=== PATIENT | female | born 1950 | race Caucasian/White ===

== ENCOUNTER 2017-09-18 10:57 | Inpatient (IN) ==
--- NOTE | 2017-09-18 11:29 | Emergency Department Note ---
Disposition Clinical Impression: Hypoxia Acute respiratory failure Qualifiers: Respiratory failure complication: hypoxia Qualified Code(s): J96.01 - Acute respiratory failure with hypoxia Disposition: Admitted As Inpatient Condition: Good Referrals: NONE,PCP [Primary Care Provider] - Elisabet Escobar [Family Provider] - Forms: ED Satisfaction Letter Time of Disposition: 17:02 Extremity Problem HPI - General Chief complaint: ED Extremity Problem,Nontraumatic Stated complaint: left leg pain Time Seen by Provider: 09/18/17 11:04 Source: EMS Limitations: no limitations Nursing Notes Reviewed: Yes Vital Signs Reviewed: Yes - History of Present Illness HPI Narrative: Mrs. Dean, 66-year-old female, presents from outside facility via EMS for further evaluation. Sending physician is concern for DVT and PE. Patient presented to their facility 11 PM last night for left knee pain. While there, she was febrile, tachycardic, hypoxic. Their workup was not concerning for infectious ideology. Her d-dimer is elevated this concern for continued workup for PE which is beyond the capabilities. PMH: Gout on indomethacin, chronic kidney disease, diabetes, hypertension, hyperlipidemia ROS: Positive: As above Negative: Fever, chills, nausea, vomiting, cough, chest pains, palpitations, unusual weakness, vertigo Pain Scale: 1 - Related Data Home Medications Medication Instructions Recorded Confirmed Albuterol Sulfate [Albuterol 2 puff IH Q4H PRN 09/18/17 09/18/17 Inhaler] Olmesartan Medoxomil [Benicar] 40 mg PO DAILY 09/18/17 09/18/17 Valproic Acid [Valproic Acid] 250 mg PO TID 09/18/17 09/18/17 diazePAM [Valium] 5 mg PO TID 09/18/17 09/18/17 Allergies Allergy/AdvReac Type Severity Reaction Status Date / Time codeine Allergy Vomiting Verified 09/18/17 11:11 All systems ED: reviewed and negative except as stated. Review of Systems: As Per HPI Past Medical History - Past Medical History Medical history: Reports: asthma, hypertension, seizures Psychiatric history: Reports: anxiety - Social History Smoking Status: Never smoker Smokeless Tobacco Status: No Alcohol use: Reports: none Drug use: Reports: none Physical Exam Vital Signs Reviewed General: Patient is alert, oriented, and in no acute distress. HEENT: No facial asymmetry. Head is normocephalic and atraumatic. PERRLA, EOMI. oral mucosa moist. Trachea midline. Cardiovascular: Heart regular rate and rhythm without clicks, rubs, gallops, or murmurs. No JVD. PMI nondisplaced. Respiratory: Symmetric chest rise with good respiratory effort. Bilateral breath sounds are clear without wheezing, crackles, or rhonchi. Abdomen: Bowel sounds present normoactive x-4 quadrants. Abdomen is soft, nondistended, and nontender. Musculoskeletal: Spontaneously moving all extremities. Neuro: She has 15. Alert and oriented 4. Skin: Warm, dry, intact. Psych: Patient's affect is appropriate for situation. - General Limitations: no limitations General appearance: alert, in no apparent distress Course Course Narrative: Records from [facility] reviewed: She presented to their facility for left knee pain radiating proximally up her thigh. She was febrile to 101.1 on arrival with heart rate tachycardic in the low 100s. Left knee x-ray showed arthritic changes with joint effusion. Chest x-ray read as no infiltrate. Patient's tachycardia was resistant to IV fluids. Patient was desaturating into the high 80s on room air GERD with nebulizers. Creatinine 1.48. No elevation in troponin. Influenza swab negative. D-dimer elevated at 358. There was concern for DVT and possible PE. Function precluded him from performing a CTA chest. Given a single shot of Lovenox prior to transfer as well as empiric antibiotics for bronchitis (unknown specific antibiotic) Patient's history is concerning given her hypoxia. She has no history of cancer , no recent surgeries or traumas, no history of coagulopathy, no recent travels. EKG unremarkable. Troponin is normal. BNP is normal. Preliminary read on bilateral lower extremity venous Doppler is negative for DVT. VQ scan shows low probability of PE. Outside hospital performed chest x-ray did not show pneumonia or vascular congestion. BNP here was normal. Patient had no crackles on auscultation. As such, pneumonia and congestive heart failure unlikely. Outside hospital troponin was within normal limits. EKG at this facility unremarkable. Patient had no chest pain. ACS and etiology unlikely. Patient had mild elevation in d-dimer, she is negative for DVT with low probability PE. Patient remains hypoxic on room air. Suspect a viral exacerbation of COPD. Discussed the above with the patient. She is in agreement to admission for pulmonary support. She has already received solumedrol. I discussed the patient with the admitting hospitalist, Dr. Coto, who agrees to accept the patient for continued evaluation and management. Pulmonary Perfusion Imaging 09/18/17 12:50 IMPRESSION: Matching defects are noted in the left lung, possibly due to chest wall attenuation. Low probability for pulmonary embolus. D/ / Alfredo Christy MD / Alfredo Christy MD Interpreting Provider: Alfredo Christy MD Chest X-Ray 09/18/17 13:39 IMPRESSION: 1. No active pulmonary disease. D/ / Bridger Amaya MD / Bridger Amaya MD Interpreting Provider: Bridger Amaya MD Vital Signs Temperature 98.6 F 09/18/17 10:59 Pulse Rate 103 09/18/17 10:59 Respiratory Rate 18 09/18/17 10:59 Blood Pressure 136/81 09/18/17 10:59 O2 Sat by Pulse Oximetry 94 09/18/17 10:59 Temperature 98.6 F 09/18/17 10:59 Pulse Rate 98 09/18/17 14:58 Respiratory Rate 18 09/18/17 14:58 Blood Pressure 128/77 09/18/17 14:58 O2 Sat by Pulse Oximetry 94 09/18/17 14:58 Oxygen Delivery Oxygen Delivery Nasal Cannula Extremity Problem, Nontraumati - Lab Data Lab Results 09/18/17 09/18/17 Range/Units 12:25 12:25 Troponin I 0.01 (0-0.03) ng/mL B-Natriuretic Peptide 39 (0-100) pg/mL - EKG Data EKG attestation: Yes I reviewed and interpreted this EKG. EKG results narrative: EKG dated 18 September 2017 at 12:29 interpreted as sinus rhythm with a rate of 94. Normal intervals. 143, QRS 90, QT/QTC 349/41. Normal axis. T-wave flattening in V1 present. EKG. Compared to previous EKG dated 11/09/2012 shows no acute ischemic changes or comparison. Attestation Statement - Attestation Attestation: I, Adelso Espino DO, examined this patient [id number] and my medical decision-making was reviewed with Dr. Micheal Sarkar, Resident Physician. I agree with the documented findings, disposition and treatment plan as described except to the extent set forth below. Please see my progress notes for details. 66-year-old female sent from outside facility for evaluation of shortness of breath left lower extremities swelling and new-onset hypoxia. Patient was evaluated at outside urgent care/understanding emergency room and recommended to be admitted. He denies inability to admit to the hospital that time and recommended she be seen at some facility. There are to become that facility. On presentation patient had oxygen in place. She became hypoxic with oxygen was taken off. Her kidney function was reviewed and is elevated with a GFR of 31. Patient also had stable laboratory workup including a negative troponin and EKG on chest x-ray established and evaluated at outside facility. D-dimer was less than 400. Patient's symptoms and presentation are concerning for possible pulmonary emboli. DVT study is negative for left lower extremity. VQ scan ordered at this time with repeat chest x-ray, troponin and BNP and EKG that were all unremarkable. Patient will most likely then need admission for definitive management of what appears to be a hypoxic event of unknown etiology. As patient is resting comfortably in the bed in no significant distress denying any chest pain fevers chills nausea vomiting or diarrhea. Denies any recent illnesses medication changes trauma or injury. No other concerns or issues noted during this initial treatment course evaluation. See detailed documentation of the physical exam, medical intervention, medical decision-making and disposition and the resident physician's note Patient has what appears to be clinical suspicion VQ scan. She will be admitted for the hypoxia. Symptoms are most likely an exacerbation of upper airway disease secondary to viral illness. She will be admitted for definitive management.
[2017-09-18] MEDS: Albuterol 2.5 MG/3 ML NEBULIZER IH PRN (22:54)
[2017-09-19] MEDS ORDERED: *HR* OxyCODONE Immed Rel 5 MG TABLET PO PRN (05:10)
[2017-09-19] MEDS ORDERED: Naloxone 0.4 MG/ML INJ IVP PRN (05:10)
--- NOTE | 2017-09-19 05:34 | Internal Med History&Physical ---
Date of Encounter: 09/19/17 Time of Encounter: 04:20 Assessment and Plan (1) Acute asthma exacerbation Current visit: Yes Status: Acute 1. Will start patient on Solu-Medrol, Albuterol aerosols, and oxygen. 2. Wean oxygen as able. 3. Resume home meds as appropriate. 4. V/Q and BLE Dopplers negative for PE/DVT respectively. Qualifiers: Asthma severity: moderate Asthma persistence: persistent Qualified Code(s ): J45.41 - Moderate persistent asthma with (acute) exacerbation (2) Pneumonia Current visit: Yes Status: Suspected 1. Despite negative CXR at [facility], history and exam suggestive of pneumonia. 2. Will order blood cultures and sputum cultures. 3. Will start IV Rocephin and Zithromax. 4. Oxygen as needed for support. Qualifiers: Pneumonia type: due to unspecified organism Laterality: right Lung location: lower lobe of lung Qualified Code(s): J18.1 - Lobar pneumonia, unspecified organism (3) Effusion, left knee Current visit: Yes Status: Acute 1. Likely due to arthritis, doubt infectious. 2. Consult Orthopedics for evaluation and arthrocentesis, if necessary. (4) DVT prophylaxis Current visit: Yes Status: Acute 1. Heparin SQ. Internal Medicine - H&P: HPI Chief complaint: fever; SOB; left knee pain Admitted From: Emergency Dept Plans for Post Hospital Care: Home History of present illness: Ms. Dean is a 66 year old female who was transferred to our ER tonight from [facility]. She presented there with complaints of wheezing, cough, shortness of breath, fever, and excruciating left knee pain. She had workup performed at [facility] in [place] and attempts were made to admit patient to [facility]. Unfortunately, both [facility] and [place] were full with no beds available. Patient was then arranged to be transferred to [facility] in [place]. However, patient and her darryl changed their minds and requested transfer to [place]. She was therefore transferred to our ER. In the ER, she underwent VQ scan and lower extremity Dopplers which were low probability and negative, respectively. Upon my assessment of the patient, she feels a little better. She is drenched in sweat as it appears she just broke a fever. She denies any pleurisy or chest pain. She has complained of coughing, wheezing, and shortness of breath the last several days. Regarding her knee pain, she has been dealing with arthritis in her knee for quite some time. She has a history of gout, but this does not feel as a gouty flareup to her. I reviewed her records from [facility] and note that she had a joint effusion on her x-ray of her knee. Chest x-ray was read as negative as well. Past Med Surg Social Fam HX - Past Medical History Attestation: Yes The following information was validated with the patient. Source: patient, old records reviewed, obtained from family Medical history: asthma, hypertension, seizures Psychiatric history: anxiety - Past Surgical History Surgical History: hysterectomy - Social History Smoking Status: Never smoker Smokeless Tobacco Status: No Alcohol use: none Drug use: none Current living situation: Home, With Family Activity Level: Independent ambulation Recent Out of Country Travel Within the Last 8 Weeks: No - Family History Mother History Unknown: Yes - Additional Family History Additional family history: no FH asthma Internal Medicine - H&P: Meds Albuterol Sulfate [Albuterol Inhaler] 2 puff IH Q4H PRN 09/18/17 [History] Olmesartan Medoxomil [Benicar] 40 mg PO DAILY 09/18/17 [History] Valproic Acid [Valproic Acid] 250 mg PO TID 09/18/17 [History] diazePAM [Valium] 5 mg PO TID 09/18/17 [History] 3 Allergy/AdvReac Type Severity Reaction Status Date / Time codeine Allergy Vomiting Verified 09/18/17 11:11 - Constitutional Constitutional: chills, fever(s), no night sweats - EENT Eyes: no blurry vision, no change in vision Ears: no ear pain, no tinnitus Nose, mouth and throat: no nasal congestion, no sinus pressure, no sore throat - Cardiovascular Cardiovascular ROS IM: no chest pain, no palpitations, no paroxysmal nocturnal dyspnea, no syncope - Respiratory Respiratory: cough, dyspnea, wheezing, chest congestion, no hemoptysis, no excessive phlegm production, no change in phlegm color - Gastrointestinal Gastrointestinal: no abdominal pain, no diarrhea, no hematemesis, no hematochezia, no melena, no nausea, no vomiting - Genitourinary Genitourinary: no dysuria, no flank pain, no hematuria - Musculoskeletal Musculoskeletal ROS IM: arthralgias (left knee), joint swelling (left knee), no back pain - Integumentary Integumentary IM: no rash, no jaundice - Neurological Neurological ROS: no disequilibrium, no dizziness, no focal weakness, no frequent falls, no headache(s) - Psychiatric Psychiatric: no anxiety, no depression - Endocrine Endocrine IM: no polydipsia, no polyuria - Hematologic/Lymphatic Hematologic/Lymphatic: no easy bruising - Allergic/Immunologic Allergic/Immunologic: wheezing, no GI upset with certain foods - Constitutional Vitals: Temp Pulse Resp BP Pulse Ox 97.3 F L 82 14 111/68 94 09/19/17 04:10 09/19/17 04:10 09/19/17 04:10 09/19/17 04:10 09/19/17 04:10 General appearance: Present: mild distress, A&O X 3, morbidly obese, answers questions appropriately Exam: drenched in sweat - Head Head exam: Present: atraumatic, normal inspection - Eye Eye exam: Present: EOMI, PERRL. Absent: scleral icterus Pupils: Present: normal accommodation - ENT ENT exam: Present: mucous membranes dry, normal exam - Neck Neck exam general surgery: Present: full ROM, supple. Absent: tenderness, nuchal rigidity - Expanded Neck Exam Neck exam: Absent: carotid bruit - Respiratory Respiratory exam: Present: prolonged expiratory phase, rales (faint right basilar crackles), respiratory distress (mild), rhonchi, wheezes. Absent: accessory muscle use, chest wall tenderness - Cardiovascular Cardiovascular exam: Present: RRR, +S1, +S2. Absent: diastolic murmur, systolic murmur - GI/Abdominal GI/Abdominal exam: Present: normal bowel sounds, soft. Absent: hepatomegaly, mass, splenomegaly, tenderness - Extremities Exam Extremities exam: Present: joint swelling (left knee with pain, swelling, limited ROM; no redness or warmth, however), warm, radial pulses palpable and symmetrical. Absent: calf tenderness - Back Exam Back exam: Absent: CVA tenderness (L), CVA tenderness (R) - Neurological Exam Neurological exam: Present: alert, CN II-XII intact, oriented X3, no focal deficits - Psychiatric Psychiatric exam: Present: normal affect, normal mood - Skin Skin exam: Present: dry, warm. Absent: rash Internal Med - H&P Results - EKG Data -: EKG Interpreted by Myself EKG shows normal: sinus rhythm - EKG Data Prior EKG available for review: no EKG comments: 09/19/17 05:42 Sinus rhythm with no acute changes
[2017-09-19] MEDS: Azithromycin 500 MG in D5% in Water 250 ML IVPB SCH (05:46)
[2017-09-19] MEDS: *HR* Heparin 5,000 UNIT/ML VIAL SQ SCH ×3 (05:47→21:27)
[2017-09-19] MEDS ORDERED: cefTRIAXone 1,000 MG in Water for inj. (sterile) 10 ML IVP SCH (06:00)
[2017-09-19 06:04] LABS: Prothrombin Time 10.6 Seconds (9.4-12.1)
[2017-09-19 06:08] LABS: Basophils % 0.3 %; Hemoglobin 9.2 g/dL (11.5-15.4); Immature Granulocytes % 1.5 % (0-4); Lymphocytes # 2.3 K/mcL (0.6-4.6); Lymphocytes % 20.9 %; Mean Corpuscular HGB Conc 31.7 g/dL (31.6-35.5); Mean Corpuscular Hemoglobin 29.9 pg (28.0-33.3); Mean Corpuscular Volume 94.2 fL (83.0-100.0); Mean Platelet Volume 10.1 fL (9.4-12.4); Monocytes # 1.1 K/mcL (0.0-1.3); Monocytes % 9.5 %; Neutrophils # 7.5 K/mcL (1.6-8.9); Platelet Count 204 K/mcL (140-400); Red Blood Count 3.08 M/mcL (3.82-4.97); Red Cell Distribution Width 13.5 % (11.5-14.5); Segmented Neutrophils % 67.8 %
[2017-09-19 06:16] LABS: Albumin 2.7 g/dL (3.5-5.0); Albumin/Globulin Ratio 0.7 (1.1-2.2); Bilirubin,Total 0.2 mg/dL (0.2-1.2); Calcium 8.4 mg/dL (8.6-10.8); Globulin 3.9 g/dL (2.4-3.5); Magnesium 1.8 mg/dL (1.6-2.6); Potassium 4.7 mEq/L (3.5-4.5); Total Protein 6.6 g/dL (6.0-8.3)
[2017-09-19 06:44] LABS: Activated Partial Thrombo Time 28.4 Seconds (26.0-36.0)
[2017-09-19] MEDS ORDERED: methylPREDNISolone 125 MG/2 ML VIAL IVP SCH (08:00)
[2017-09-19] MEDS: Valproic Acid 250 MG CAPSULE PO SCH ×3 (09:23→21:26)
[2017-09-19] MEDS: Acetaminophen 325 MG TABLET PO PRN ×2 (09:40→21:26)
--- NOTE | 2017-09-19 13:40 | Internal Med Progress Note ---
<Rony Gonsalez - Last Filed: 09/19/17 13:52> Date of Encounter: 09/19/17 Time of Encounter: 09:00 - Assessment and plan (1) Acute respiratory failure Current Visit: Yes Status: Acute Assessment and plan: Patient presented with shortness of breath. Low oxygen saturation, initial concern for PE. VQ scan demonstrated low probability of PE. Patient was asymptomatic this morning; oxygen saturation has improved to 98%. Plan: -Solu-Medrol 60 mg IV Q8 -DuoNeb's 2.5 mg Q4 -Continuous cardiac monitoring. -Patient will be discharged pending the approval of orthopedics. Qualifiers: Respiratory failure complication: hypoxia Qualified Code(s): J96.01 - Acute respiratory failure with hypoxia (2) Pneumonia Current Visit: Yes Status: Suspected Assessment and plan: In [facility]'s ER, patient had a negative chest x-ray. History and physical examination however, were suggestive of pneumonia upon presentation. Blood culture was ordered. Patient was started on azithromycin 500 mg IV Q24 and ceftriaxone 1000 IV Q24 on 09/19/17; day 1 of antibiotics. Qualifiers: Pneumonia type: due to unspecified organism Laterality: right Lung location: lower lobe of lung Qualified Code(s): J18.1 - Lobar pneumonia, unspecified organism (3) Effusion, left knee Current Visit: Yes Status: Acute Assessment and plan: Patient has swelling in her left knee. -Possibly due to arthritis. -No redness or tenderness suggestive of infection. -Orthopedics has been consult for evaluation and possible arthrocentesis. (4) DVT prophylaxis Current Visit: Yes Status: Acute - Subjective Interval history: Patient was seen and examined at bedside this morning. Patient states that she is feeling much better than she did on initial presentation. She denies having any shortness of breath, cough, excessive sputum production, fever, chills, or chest pain. Patient only complains of pain right knee she has had for quite some time. Patient is resting comfortably in bed and has no complaints at this time. - Constitutional Vitals: Temp Pulse Resp BP Pulse Ox 97.6 F 81 15 110/70 98 09/19/17 07:28 09/19/17 07:28 09/19/17 07:28 09/19/17 07:28 09/19/17 07:28 General appearance: Present: mild distress, A&O X 3, morbidly obese, answers questions appropriately - Head Head exam: Present: atraumatic, normocephalic - Eye Eye exam: Present: PERRL, conjuntiva pink, sclera anicteric Pupils: Present: PERRL - Neck Neck exam general surgery: Present: supple, trachea midline. Absent: lymphadenopathy - Respiratory Respiratory exam: Present: CTAB. Absent: accessory muscle use, rales, rhonchi, wheezes - Cardiovascular Cardiovascular exam: Present: RRR, +S1, +S2. Absent: diastolic murmur, gallop, rubs, systolic murmur - Skin Skin exam: Present: dry, intact Internal Medicine: Result - Labs CBC & Chem 7: 09/19/17 05:46 09/19/17 05:46 Labs: Short CBC 09/19/17 Range/Units 05:46 WBC 11.0 (4.3-11.1) K/mcL Hgb 9.2 L (11.5-15.4) g/dL Hct 29.0 L (35.3-44.9) % Plt Count 204 (140-400) K/mcL Neutrophils # 7.5 (1.6-8.9) K/mcL BMP 09/19/17 05:46 Sodium 139 Potassium 4.7 H Chloride 105 Carbon Dioxide 24 BUN 31 H Creatinine 1.11 Glucose 128 H Calcium 8.4 L Liver Function 09/19/17 Range/Units 05:46 Total Bilirubin 0.2 (0.2-1.2) mg/dL AST 11 (5-34) Units/L ALT 12 (0-55) Units/L Alkaline Phosphatase 72 (38-126) Units/L Albumin 2.7 L (3.5-5.0) g/dL - ABG Interpretation ABG results: PT/INR, D-dimer PT 10.6 Seconds (9.4-12.1) 09/19/17 05:46 Consult Discharge Plan - Plan Referrals: NONE,PCP [Primary Care Provider] - Elisabet Escobar [Family Provider] - <Al Lin - Last Filed: 09/19/17 19:27> Date of Encounter: 09/19/17 - Constitutional Vitals: Temp Pulse Resp BP Pulse Ox 97.2 F L 92 15 119/73 90 09/19/17 16:36 09/19/17 16:36 09/19/17 16:36 09/19/17 16:36 09/19/17 16:36 Internal Medicine: Result - Labs CBC & Chem 7: 09/19/17 05:46 09/19/17 05:46 Labs: Short CBC 09/19/17 Range/Units 05:46 WBC 11.0 (4.3-11.1) K/mcL Hgb 9.2 L (11.5-15.4) g/dL Hct 29.0 L (35.3-44.9) % Plt Count 204 (140-400) K/mcL Neutrophils # 7.5 (1.6-8.9) K/mcL BMP 09/19/17 05:46 Sodium 139 Potassium 4.7 H Chloride 105 Carbon Dioxide 24 BUN 31 H Creatinine 1.11 Glucose 128 H Calcium 8.4 L Liver Function 09/19/17 Range/Units 05:46 Total Bilirubin 0.2 (0.2-1.2) mg/dL AST 11 (5-34) Units/L ALT 12 (0-55) Units/L Alkaline Phosphatase 72 (38-126) Units/L Albumin 2.7 L (3.5-5.0) g/dL - ABG Interpretation ABG results: PT/INR, D-dimer PT 10.6 Seconds (9.4-12.1) 09/19/17 05:46 - Attending Attestation I conducted a face to face diagnostic evaluation of this patient and my medical decision-making was reviewed with the Resident Physician, Dr. Rony Gonsalez. I agree with the documented findings, disposition and treatment plan as described except to the extent set forth below: On my evaluation patient appears short of breath, speaking in short sentences, tachypneic. Her oxygen saturation drops to 89% on room air with just walking a few steps to the bathroom. Heart rate went up to 109. She reports moderate shortness of breath. : Continue with IV steroids. Continue with azithromycin. Check respiratory infection panel.
[2017-09-19] MEDS: Albuterol 2.5 MG/3 ML NEBULIZER IH PRN (14:18)
[2017-09-19 17:43] LABS: Adenovirus Not Detected (Not Detect); Coronavirus 229E Not Detected (Not Detect); Coronavirus HKU1 Not Detected (Not Detect); Coronavirus NL63 Not Detected (Not Detect); Coronavirus OC43 Not Detected (Not Detect); Human Metapneumovirus Not Detected (Not Detect); Human Rhinovirus/Enterovirus Not Detected (Not Detect)
[2017-09-19 17:44] LABS: Bordetella Pertussis Not Detected (Not Detect); Chlamydophila pneumoniae Not Detected (Not Detect); Influenza A Subtype 2009 H1 Not Detected (Not Detect); Influenza A Untypeable Not Detected (Not Detect); Influenza B Not Detected (Not Detect); Mycoplasma pneumoniae Not Detected (Not Detect); Parainfluenza Virus 1 Not Detected (Not Detect); Parainfluenza Virus 2 Not Detected (Not Detect); Parainfluenza Virus 3 Not Detected (Not Detect); Parainfluenza Virus 4 Not Detected (Not Detect); Respiratory Syncytial Virus Not Detected (Not Detect)
[2017-09-19] MEDS: methylPREDNISolone 125 MG/2 ML VIAL IVP SCH (18:00)
[2017-09-19] MEDS: diazePAM 5 MG TABLET PO PRN (21:26)
[2017-09-20] MEDS: methylPREDNISolone 125 MG/2 ML VIAL IVP SCH ×2 (05:44→17:07)
[2017-09-20] MEDS: *HR* Heparin 5,000 UNIT/ML VIAL SQ SCH ×3 (05:44→22:05)
[2017-09-20] MEDS: Azithromycin 500 MG in D5% in Water 250 ML IVPB SCH (05:45)
[2017-09-20] MEDS: Valproic Acid 250 MG CAPSULE PO SCH ×3 (09:17→22:05)
[2017-09-20] MEDS: Albuterol 2.5 MG/3 ML NEBULIZER IH PRN (09:37)
[2017-09-20 10:20] LABS: Hematocrit 31.4 % (35.3-44.9); Hemoglobin 10.1 g/dL (11.5-15.4); Mean Corpuscular HGB Conc 32.2 g/dL (31.6-35.5); Mean Corpuscular Hemoglobin 30.1 pg (28.0-33.3); Mean Corpuscular Volume 93.5 fL (83.0-100.0); Mean Platelet Volume 10.5 fL (9.4-12.4); Platelet Count 250 K/mcL (140-400); Red Blood Count 3.36 M/mcL (3.82-4.97); Red Cell Distribution Width 13.5 % (11.5-14.5)
[2017-09-20 10:30] LABS: Potassium 4.8 mEq/L (3.5-4.5)
[2017-09-20 10:31] LABS: Calcium 9.1 mg/dL (8.6-10.8)
[2017-09-20] MEDS: diazePAM 5 MG TABLET PO PRN (15:28)
--- NOTE | 2017-09-20 15:29 | Internal Med Progress Note ---
<Rony Gonsalez - Last Filed: 09/20/17 15:24> Date of Encounter: 09/20/17 Time of Encounter: 09:45 - Assessment and plan (1) Acute respiratory failure Current Visit: Yes Status: Acute Assessment and plan: Patient presented with shortness of breath. Low oxygen saturation, initial concern for PE. VQ scan demonstrated low probability of PE. Oxygen saturation this morning was 96%. Plan: -Solu-Medrol 60 mg IV Q12 -DuoNeb's 2.5 mg Q4 -Continuous cardiac monitoring. -Patient will be discharged pending the approval of orthopedics. Qualifiers: Respiratory failure complication: hypoxia Qualified Code(s): J96.01 - Acute respiratory failure with hypoxia (2) Pneumonia Current Visit: Yes Status: Suspected Assessment and plan: In [facility] ER, patient had a negative chest x-ray. History and physical examination however, were suggestive of pneumonia upon presentation. Patient had an episode of shortness of breath and desaturation last night. Has resolved today. Pulse ox this morning was 96%. Patient will need to go home on oxygen. Plan: -Azithromycin 500 mg IV Q24 and ceftriaxone 1000 IV Q24 on 09/19/17; day 2 of antibiotics. Qualifiers: Pneumonia type: due to unspecified organism Laterality: right Lung location: lower lobe of lung Qualified Code(s): J18.1 - Lobar pneumonia, unspecified organism (3) Effusion, left knee Current Visit: Yes Status: Acute Assessment and plan: Patient has swelling in her left knee. -Possibly due to arthritis. -No redness or tenderness suggestive of infection. -Orthopedics has been consulted for evaluation and possible arthrocentesis. (4) DVT prophylaxis Current Visit: Yes Status: Acute - Subjective Interval history: Patient was seen and examined at bedside this morning. Patient states she was feeling well today. Patient did have an episode of shortness of breath last night. Since this episode, she has not had any shortness of breath. Patient admits to having some wheezing. Knee pain still present in the left knee. Orthopedics has been consulted; will see patient later today. - Constitutional Vitals: Temp Pulse Resp BP Pulse Ox 98.0 F 89 16 155/80 95 09/20/17 11:54 09/20/17 11:54 09/20/17 11:54 09/20/17 11:54 09/20/17 11:54 General appearance: Present: mild distress, A&O X 3, morbidly obese, answers questions appropriately - Head Head exam: Present: atraumatic, normocephalic - Eye Eye exam: Present: PERRL, conjuntiva pink, sclera anicteric Pupils: Present: PERRL - Neck Neck exam general surgery: Present: supple, trachea midline. Absent: lymphadenopathy - Respiratory Respiratory exam: Present: wheezes. Absent: rales, rhonchi Additional comments: Expiratory wheezes present primarily in the upper lung navarro. - Cardiovascular Cardiovascular exam: Present: RRR, +S1, +S2. Absent: diastolic murmur, gallop, rubs, systolic murmur - Skin Skin exam: Present: dry, intact Internal Medicine: Result - Labs CBC & Chem 7: 09/20/17 09:45 09/20/17 09:45 Labs: Short CBC 09/20/17 Range/Units 09:45 WBC 12.4 H (4.3-11.1) K/mcL Hgb 10.1 L (11.5-15.4) g/dL Hct 31.4 L (35.3-44.9) % Plt Count 250 (140-400) K/mcL BMP 09/20/17 09:45 Sodium 137 Potassium 4.8 H Chloride 102 Carbon Dioxide 26 BUN 34 H Creatinine 1.20 H Glucose 166 H Calcium 9.1 - ABG Interpretation ABG results: PT/INR, D-dimer PT 10.6 Seconds (9.4-12.1) 09/19/17 05:46 - Impressions Impressions Knee X-Ray 09/20/17 14:44 IMPRESSION: Moderate to severe tricompartmental osteoarthrosis and small suprapatellar effusions. D/ / Varun Castañeda MD / Varun Castañeda MD Interpreting Provider: Varun Castañeda MD Consult Discharge Plan - Plan Additional Instructions: You will have an appt. with nurse practioner Merry Herrera on at 4:20 Pm. Please follow up as schedule.. Referrals: NONE,PCP [Primary Care Provider] - Elisabet Escobar [Family Provider] - <Al Lin - Last Filed: 09/21/17 08:05> Date of Encounter: 09/20/17 - Constitutional Vitals: Temp Pulse Resp BP Pulse Ox 97.7 F 79 19 131/78 95 09/21/17 07:41 09/21/17 07:41 09/21/17 07:41 09/21/17 07:41 09/21/17 07:41 Internal Medicine: Result - Labs CBC & Chem 7: 09/21/17 05:05 09/21/17 05:05 Labs: Short CBC 09/20/17 09/21/17 Range/Units 09:45 05:05 WBC 12.4 H 11.1 (4.3-11.1) K/mcL Hgb 10.1 L 10.5 L (11.5-15.4) g/dL Hct 31.4 L 32.7 L (35.3-44.9) % Plt Count 250 307 (140-400) K/mcL Neutrophils # 7.1 (1.6-8.9) K/mcL BMP 09/20/17 09/21/17 09:45 05:05 Sodium 137 139 Potassium 4.8 H 4.7 H Chloride 102 101 Carbon Dioxide 26 25 BUN 34 H 32 H Creatinine 1.20 H 1.16 H Glucose 166 H 115 H Calcium 9.1 8.9 - ABG Interpretation ABG results: PT/INR, D-dimer PT 10.6 Seconds (9.4-12.1) 09/19/17 05:46 - Impressions Impressions Knee X-Ray 09/20/17 14:44 IMPRESSION: Moderate to severe tricompartmental osteoarthrosis and small suprapatellar effusions. D/ / Varun Castañeda MD / Varun Castañeda MD Interpreting Provider: Varun Castañeda MD - Attending Attestation I conducted a face to face diagnostic evaluation of this patient and my medical decision-making was reviewed with the Resident Physician, Dr. Rony Gonsalez. I agree with the documented findings, disposition and treatment plan as described except to the extent set forth below: Lung exam demonstrates expiratory wheezes improved from yesterday. She continues to be short of breath and tachypneic. I will continue with IV steroids and transitioned to oral steroids tomorrow.
--- NOTE | 2017-09-20 18:27 | Electrocardiograph Report ---
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
--- NOTE | 2017-09-20 19:15 | Orthopedic Consult Note ---
Date of Encounter: 09/20/17 Time of Encounter: 19:13 Assessment and Plan (1) Bilateral primary osteoarthritis of knee Current Visit: Yes Status: Acute I discussed the diagnosis in detail with the patient. She has simple bilateral osteoarthritis of the knees which is quite severe. She would benefit from oral anti-inflammatories and possible steroid injections which can be performed on an outpatient basis. She is orthopedically stable for discharge without restriction. Follow-up with sports medicine at [facility]. I will be available as needed. History of Present Illness HPI: This is a 66-year-old patient admitted for pulmonary issues though her initial complaint was pain while walking and concern for DVT/PE. Nevertheless her pain has been chronic and off and on for the last 7 years. X-rays obtained today show bilateral osteoarthritis of the knees. She has no new injuries or complaints. She says pain is localized to the bilateral feet, legs, and the areas burning in nature. This has improved since her hospital stay and she has been able to get up and walk to the bathroom without issue. No numbness, tingling, or any other associated signs or symptoms or modifying factors. Past Med Surg Social Fam HX - Past Medical History Medical history: asthma, hypertension, seizures Psychiatric history: anxiety - Past Surgical History Surgical History: hysterectomy - Social History Smoking Status: Never smoker Smokeless Tobacco Status: No Alcohol use: none Drug use: none - Family History Mother History Unknown: Yes Medications and Allergies Albuterol Sulfate [Albuterol Inhaler] 2 puff IH Q4H PRN 09/18/17 [History] Olmesartan Medoxomil [Benicar] 40 mg PO DAILY 09/18/17 [History] Valproic Acid [Valproic Acid] 250 mg PO TID 09/18/17 [History] diazePAM [Valium] 5 mg PO TID 09/18/17 [History] 3 Allergy/AdvReac Type Severity Reaction Status Date / Time codeine Allergy Vomiting Verified 09/18/17 11:11 All Systems Reviewed: A 10-system review of systems was performed and is negative for pertinent findings except as documented above in the HPI. Physical Exam - Constitutional Vitals: Temp Pulse Resp BP Pulse Ox 97.9 F 78 18 138/79 97 09/20/17 16:02 09/20/17 16:02 09/20/17 16:02 09/20/17 16:02 09/20/17 16:02 CONSTITUTIONAL -Vitals reviewed -The patient is well developed, well nourished, well groomed PSYCHIATRIC -Fully alert and oriented -Pleasant mood LEFT UPPER EXTREMITY Inspection shows that the skin and soft tissue envelope are intact. Moderate swelling to the leg as a whole. No redness or concern for infection. I can gently range the knee from 0-90 without significant pain. The knee is ligamentously stable. She can dorsiflex and plantar flex ankle and toes and the foot is sensate and well-perfused. RIGHT UPPER EXTREMITY Inspection shows that the skin and soft tissue envelope are intact. Moderate swelling to the leg as a whole. No redness or concern for infection. I can gently range the knee from 0-90 without significant pain. The knee is ligamentously stable. She can dorsiflex and plantar flex ankle and toes and the foot is sensate and well-perfused. Diagnostic Imaging: I did personally review and interpret x-rays of the bilateral knees show moderate to severe osteoarthritis bilaterally. Results - Labs Result Diagrams: 09/20/17 09:45 09/20/17 09:45 Labs: Abnormal lab results WBC 12.4 K/mcL (4.3-11.1) H 09/20/17 09:45 RBC 3.36 M/mcL (3.82-4.97) L 09/20/17 09:45 Hgb 10.1 g/dL (11.5-15.4) L 09/20/17 09:45 Hct 31.4 % (35.3-44.9) L 09/20/17 09:45 Potassium 4.8 mEq/L (3.5-4.5) H 09/20/17 09:45 BUN 34 mg/dL (7-20) H 09/20/17 09:45 Creatinine 1.20 mg/dL (0.57-1.11) H 09/20/17 09:45 Est GFR ( Amer) 55 (> 60) L 09/20/17 09:45 Est GFR (Non-Af Amer) 45 (> 60) L 09/20/17 09:45 BUN/Creatinine Ratio 28 (6-26) H 09/20/17 09:45 Glucose 166 mg/dL (70-99) H 09/20/17 09:45 Albumin 2.7 g/dL (3.5-5.0) L 09/19/17 05:46 Globulin 3.9 g/dL (2.4-3.5) H 09/19/17 05:46 Albumin/Globulin Ratio 0.7 (1.1-2.2) L 09/19/17 05:46 H & H 09/20/17 Range/Units 09:45 Hgb 10.1 L (11.5-15.4) g/dL Hct 31.4 L (35.3-44.9) % All other labs normal. Consult Discharge Plan - Plan Additional Instructions: You will have an appt. with nurse practioner Merry Herrera on at 4:20 Pm. Please follow up as schedule.. Referrals: NONE,PCP [Primary Care Provider] - Elisabet Escobar [Family Provider] -
[2017-09-21] MEDS: *HR* Heparin 5,000 UNIT/ML VIAL SQ SCH ×2 (05:33→14:49)
[2017-09-21] MEDS: Azithromycin 500 MG in D5% in Water 250 ML IVPB SCH (05:34)
[2017-09-21] MEDS: methylPREDNISolone 125 MG/2 ML VIAL IVP SCH (05:34)
[2017-09-21 06:04] LABS: Basophils # 0.1 K/mcL (0.0-0.2); Basophils % 0.5 %; Hematocrit 32.7 % (35.3-44.9); Hemoglobin 10.5 g/dL (11.5-15.4); Immature Granulocytes % 4.1 % (0-4); Lymphocytes # 2.6 K/mcL (0.6-4.6); Lymphocytes % 23.6 %; Mean Corpuscular HGB Conc 32.1 g/dL (31.6-35.5); Mean Corpuscular Hemoglobin 30.2 pg (28.0-33.3); Mean Platelet Volume 10.3 fL (9.4-12.4); Monocytes # 0.9 K/mcL (0.0-1.3); Neutrophils # 7.1 K/mcL (1.6-8.9); Nucleated Red Blood Cells 0.2 /100 WBC (0); Platelet Count 307 K/mcL (140-400); Red Blood Count 3.48 M/mcL (3.82-4.97); Red Cell Distribution Width 13.3 % (11.5-14.5); Segmented Neutrophils % 63.8 %
[2017-09-21 06:18] LABS: Calcium 8.9 mg/dL (8.6-10.8); Potassium 4.7 mEq/L (3.5-4.5)
[2017-09-21] MEDS: Valproic Acid 250 MG CAPSULE PO SCH ×2 (08:19→14:48)
[2017-09-21] MEDS: diazePAM 5 MG TABLET PO PRN (08:29)
--- NOTE | 2017-09-21 09:13 | Discharge Summary ---
Addendum entered and electronically signed by Rony Gonsalez DO 09/21/17 14:06: Patient requires 2L of continuous O2 at all times. She has been approved for home oxygen. Original Note: <Rony Gonsalez - Last Filed: 09/21/17 13:21> Date of Encounter: 09/21/17 Time of Encounter: 08:30 - Discharge Diagnosis (1) Acute respiratory failure Priority: Primary Status: Acute Qualifiers: Respiratory failure complication: hypoxia Qualified Code(s): J96.01 - Acute respiratory failure with hypoxia (2) Pneumonia Priority: Secondary Status: Suspected Qualifiers: Pneumonia type: due to unspecified organism Laterality: right Lung location: lower lobe of lung Qualified Code(s): J18.1 - Lobar pneumonia, unspecified organism (3) Effusion, left knee Priority: Secondary Status: Acute (4) DVT prophylaxis Priority: Secondary Status: Acute - Discharge Medications Prescriptions: Albuterol Neb [Proventil Neb] 2.5 mg IH Q4HR #90 vial.neb Azithromycin [Zithromax Tri-Manoj] 500 mg PO DAILY #5 tablet predniSONE [PredniSONE] See Taper PO DAILY #21 tablet Home Medications: Albuterol Sulfate [Albuterol Inhaler] 2 puff IH Q4H PRN 09/18/17 [History] Olmesartan Medoxomil [Benicar] 40 mg PO DAILY 09/18/17 [History] Valproic Acid [Valproic Acid] 250 mg PO TID 09/18/17 [History] diazePAM [Valium] 5 mg PO TID 09/18/17 [History] Albuterol Neb [Proventil Neb] 2.5 mg IH Q4HR #90 vial.neb 09/21/17 [Rx] Azithromycin [Zithromax Tri-Manoj] 500 mg PO DAILY #5 tablet 09/21/17 [Rx] predniSONE [PredniSONE] See Taper PO DAILY #21 tablet 09/21/17 [Rx] Allergies/Adverse Reactions: 3 Allergy/AdvReac Type Severity Reaction Status Date / Time codeine Allergy Vomiting Verified 09/18/17 11:11 Date of admission: 09/19/17 19:23 Primary care physician: PCP NONE Discharging clinician: Rony Gonsalez Anticipated date of discharge: 09/21/17 - Patient Status Disposition: Home, Self-Care Condition: Good Overall status at discharge: patient is progressing back to baseline - Discharge Instructions Instructions: Albuterol (By mouth), Azithromycin (By mouth), Prednisolone (By mouth), Asthma (DC), Acute Respiratory Distress Syndrome (DC), Hypoxia (GEN) Follow Up With: NONE,PCP [Primary Care Provider] - Elisabet Escobar [Family Provider] - Additional Instructions: You will have an appt. with nurse practioner Merry Herrera on at 4:20 Pm. Please follow up as schedule.. - Diet and Activity Activity: increase activity as tolerated Diet: advance to your usual diet Hospital course: Ms. Dean is a 66 year old female who presented to [facility] from [place] on 09/18/17. She presented to that hospital with the complaints of wheezing, cough, shortness of breath, fever, and left knee pain. Patient was transferred to [facility] after no beds were available at [place]. Upon presentation, patient's pulse was 103, and respiratory rate was 18 breaths per minute. In the ER, there was an initial concern that patient had a pulmonary embolism. She had tachycardia, respiratory distress, low oxygen saturation and an elevated d-dimer at 358. VQ scan was performed, and showed low probability of pulmonary embolism. Chest x-ray was unremarkable. Patient stated that she had been feeling short of breath with wheezing over the course of the previous 3 days. Her knee pain had been developing over the course of a few months, but had gotten much worse. She reported a history of gout, but stated that her knee pain was very different from her flareups of gout. Per the records of [facility] ER, patient had a joint effusion on knee x-ray. After patient was admitted to the hospital, she was seen by the hospitalist, who reported that the patient broke out into a sweat and was short of breath on examination. Patient was started on Solu-Medrol, duo nebs, and O2 via nasal cannula. Since her history and exam was suggestive of pneumonia, patient was started on IV Rocephin and Zithromax. Blood cultures were ordered. After her admission, patient's condition began to improve. Her oxygen saturation was stable, patient did not have any episodes of respiratory distress. No cough or sputum production was present. Blood cultures on were negative. Patient was seen by orthopedics on 09/20/17. Per orthopedic' s note: Patient has simple bilateral osteoarthritis of the knees which is severe. Patient will benefit from oral anti-inflammatories and possible steroid injections which can be performed in the outpatient setting. Patient is orthopedically stable for discharge without restriction. Patient was seen and examined at bedside this morning. Patient states that she is feeling much better today. Patient experienced some wheezes this morning, but was in no acute respiratory distress. She denies having any fever, chills, cough, productive sputum, or chest pain. Patient has no complaints at this time. Patient will be sent home on O2, albuterol, a prednisone taper, and a 5 day course of azithromycin 500 mg PO daily - Time Spent with Patient Total time spent providing and/or coordinating discharge services: - Constitutional Vitals: Temp Pulse Resp BP Pulse Ox 97.7 F 79 19 131/78 95 09/21/17 07:41 09/21/17 07:41 09/21/17 07:41 09/21/17 07:41 09/21/17 08:22 General appearance: Present: mild distress, A&O X 3, morbidly obese, answers questions appropriately - Head Head exam: Present: atraumatic, normocephalic - Eye Eye exam: Present: PERRL, conjuntiva pink, sclera anicteric Pupils: Present: PERRL - Neck Neck exam general surgery: Present: supple, trachea midline. Absent: lymphadenopathy - Respiratory Respiratory exam: Present: wheezes. Absent: accessory muscle use, rales, rhonchi - Cardiovascular Cardiovascular exam: Present: RRR, +S1, +S2. Absent: diastolic murmur, gallop, rubs, systolic murmur - GI/Abdominal GI/Abdominal exam: Present: normal bowel sounds, soft, no peritoneal signs. Absent: distended, tenderness - Extremities Exam Extremities exam: Present: joint swelling, warm, radial pulses palpable and symmetrical. Absent: calf tenderness, cyanotic, pedal edema Additional comments: L knee swelling - Skin Skin exam: Present: dry, intact <Al Lin - Last Filed: 09/21/17 19:05> Date of Encounter: 09/21/17 Date of admission: 09/19/17 19:23 Primary care physician: PCP NONE Hospital course: Ms. Dean is a 66 year old female - Time Spent with Patient Total time spent providing and/or coordinating discharge services: - Constitutional Vitals: Temp Pulse Resp BP Pulse Ox 98.0 F 83 18 156/77 96 09/21/17 11:46 09/21/17 11:46 09/21/17 11:46 09/21/17 11:46 09/21/17 11:46 - Attending Attestation I conducted a face to face diagnostic evaluation of this patient and my medical decision-making was reviewed with the Resident Physician, Dr. Rony Gonsalez. I agree with the documented findings, disposition and treatment plan as described except to the extent set forth below: On day 2 of admission her oxygen saturation dropped to 87% on room air and she appeared to be tachypneic and had conversational dyspnea. She qualified for home on home oxygen and will be discharged with oxygen at 2 L/m. Her shortness of breath has improved today. Patient should follow up with pulmonology in 4-6 weeks after discharge to be evaluated with pulmonary function testing for COPD.
[2017-09-21 11:49] VITALS: BP 156/77
[2017-09-21] MEDS ORDERED: FLUARIX QUAD 2017-18 36MOS UP/PF 0.5 ML SYRINGE IM ONE (14:37)
[2017-09-22] MEDS ORDERED: Azithromycin 250 MG TABLET PO SCH (07:00)
== END 2017-09-21 15:15 | disposition home or self-care (01) | DRG 193 ==
LOC: 2ANU 10:57 → EMEROO 10:57 → SUATTDRO 18:14 → 2ANU 18:30
PROVIDERS: ADMIT Internal Medicine; ATTEND Internal Medicine